=== PATIENT | female | born 1945 | race Hispanic/Latino ===

== ENCOUNTER 2018-04-19 08:11 | Emergency (ER) | payer MEDICARE | END 2018-04-19 09:44 | disposition home or self-care (01) | LOC: EDH 08:11 | DX: S91.052A Open bite, left ankle, initial encounter (principal); E78.5 Hyperlipidemia, unspecified; I10 Essential (primary) hypertension; W54.0XXA Bitten by dog, initial encounter; Y93.89 Activity, other specified; Y92.89 Other specified places as the place of occurrence of the external cause; Y99.8 Other external cause status | CPT/HCPCS: 73600 ==